=== PATIENT | female | born 1960 | race Hispanic/Latino ===

== ENCOUNTER → 2018-06-12 | Outpatient (CLI) | payer OTHER ==
[~2018-06-12] MED LIST: ATENOLOL50 MG PO; GLYBURIDE-METF1 EAC1 PO; PANTOPRAZOLE SO40 MG PO; PRAVASTATIN SOD40 MG PO; XANAX1 MG PO; ZESTRIL20 MG PO
== END ==
LOC: MAMMO 10:25
PROVIDERS: ATTEND Internal Medicine
DX: Z12.31 Encounter for screening mammogram for malignant neoplasm of breast (principal)
CPT/HCPCS: 77067

== ENCOUNTER 2024-06-23 23:03 | Emergency (ER) | payer BC ==
[~2024-06-23] VITALS: Ht 160 cm; Wt 72.6 kg
[~2024-06-23 23:03] MED LIST changes: +ASPIRIN81 MG PO; +ATORVASTATIN CA40 MG PO; +CLONAZEPAM0.5 MG PO; +CLOPIDOGREL75 MG PO; +DICYCLOMINE HCL20 MG PO; +FARXIGA10 MG PO; +GLUCOTROL10 MG PO; +LISINOPRIL40 MG PO; +METFORMIN HCL1000 MG; +ONDANSETRON ODT4 MG PO; +ONDANSETRON ODT4 MG SL
[2024-06-23 23:30] VITALS: TEMP 98
[2024-06-23] MEDS: ONDANSETRON HCL 4 MG ORAL DISINTEGRATING TAB PO ONE (23:35)
[2024-06-24 01:30] VITALS: PULSE 76; RESP 18
[2024-06-24 02:53] VITALS: BP 139/51; PULSE 70; RESP 13; TEMP 98.2; O2SAT 97
[2024-06-24] MEDS ORDERED: PANTOPRAZOLE SO40 MG PO (03:02)
== END 2024-06-24 03:10 | disposition home or self-care (01) ==
LOC: ER 23:31 → MERGE 23:31 → ER 06-24 03:10
DX: T65.891A Toxic effect of other specified substances, accidental (unintentional), initial encounter (principal); K20.80 Other esophagitis without bleeding; I10 Essential (primary) hypertension; E11.9 Type 2 diabetes mellitus without complications; E78.5 Hyperlipidemia, unspecified
CPT/HCPCS: 71045; 99283; Q0162

== ENCOUNTER 2025-01-10 16:39 | Emergency (ER) | payer BC ==
[~2025-01-10] VITALS: Ht 160 cm; Wt 72.6 kg
[2025-01-10 16:47] VITALS: PULSE 63; RESP 18; TEMP 98.2
[2025-01-10] MEDS ORDERED: CLINDAMYCIN HC150 MG PO (17:34)
[2025-01-10 17:49] VITALS: BP 127/60; PULSE 63; RESP 18; O2SAT 98
== END 2025-01-10 17:50 | disposition home or self-care (01) ==
LOC: ER 17:10
DX: H92.01 Otalgia, right ear (principal); K08.89 Other specified disorders of teeth and supporting structures; I10 Essential (primary) hypertension; E11.9 Type 2 diabetes mellitus without complications; E78.5 Hyperlipidemia, unspecified
CPT/HCPCS: 99282